=== PATIENT | male | born 1995 | race Caucasian/White ===

== ENCOUNTER 2024-11-02 19:40 | Emergency (ER) | payer OTHER, SELFPAY ==
[2024-11-02 19:45] VITALS: BP 130/96
--- NOTE | 2024-11-02 22:05 | ED.GENMED ---
History of Present Illness
<HEIDI Abarca - Last Filed: 11/02/24 23:15>
General
Chief Complaint: Headache
Source: patient and spouse
Exam Limitations: none
Time Seen by Provider: 11/02/24 22:04
Nursing documentation reviewed up to this point in time: agreed with
History of Present Illness
History of Present Illness:
Pt is a 29 y/o M w/ PMH of 'walking pneumonia' x 2days diagnosed by his FM provider without chest XR confirmation, who presents to the ED with headache and stiff neck x 7 hours. He states he has been taking azithromycin and Tessalon perles x 1 day
for the PNA and associated cough. He states the the headache is sharp and constant and is located at one point around the L anterior hairline. He also admits to associated stiff neck also x 7 hours that is mostly on the left side. He does state that
he has been lying down a lot because of fatigue and may have been 'laying weird' causing his neck to feel this way. Pt admits that he has tried Tylenol and Ibuprofen to alleviate the pain but it has not helped, with the last dose of ibuprofen at
20:30pm. He admits to associated fever since onset of PNA symptoms with a Tmax of 102.6F that has been managed with Tylenol. Pt denies sore throat, chest pain, palpitations, hemoptysis, abd pain, vomiting, diarrhea.
Past History
<HEIDI Abarca - Last Filed: 11/02/24 23:15>
Past History
ED Past Medical History: None; Negative Asthma, HTN, Hypercholesterolemia or NIDDM
ED Past Surgical History: Other (Cameron teeth, varicocele repair)
Social History
Tobacco: Non-smoker
Alcohol: Occasional
Drug: None
Personal: Single
Living: with family
Review of Systems
<HEIDI Abarca - Last Filed: 11/02/24 23:15>
Review of Systems
Allergies reviewed?: Yes
Other source history: family
Constitutional: Reports fever, fatigue, night sweats and chills
EENT: Denies sore throat
Respiratory: Reports cough; Denies hemoptysis or trouble breathing
Cardiac: Denies chest pain, palpitations or syncope
ABD/GI: Reports nausea; Denies abdominal pain, vomiting or diarrhea
: Reports no symptoms
Musculoskeletal: Reports neck pain (x7 hrs); Denies back pain
Neurological: Reports headache (x7 hrs); Denies dizzy
Phy Exam
<HEIDI Abarca - Last Filed: 11/02/24 23:15>
General Physical Exam
General Presentation: well appearing and no apparent distress
General age: appears stated age
General Skin: warm and dry
General Habitus: normal
General Mental: alert
General Hydration: appears well hydrated
Cardiovascular Exam
Cardiovascular Exam: regular rate/rhythm and no murmur
Pulmonary Exam
Pulmonary Exam: no respiratory distress
Gastrointestinal Exam
Gastrointestinal Exam: non tender, soft and non distended
Neurological Exam
Neurological Exam: alert, oriented x3, no motor deficits and other (Kernig and Brudzinski tests negative)
Musculoskeletal Exam
Musculoskeletal Exam: neck pain (Kernig and Brudzinski tests negative)
Course
<HEIDI Abarca - Last Filed: 11/02/24 23:15>
Orders/Labs/Results
Orders:
Orders
11/02/24 22:47
Chest [CR Chest - 2 Views ] Urgent
Comment:
Reason For Exam: cough, fever
11/02/24 22:56
CBC/With Diff [Complete Blood Count/With Diff] Urgent
CMP [Comprehensive Metabolic Panel] Urgent
COVID-19 Antigen Urgent
Source: Nasal Swab
Influenza A+B Rapid Molecular Urgent
SANTOS Source: Nasal Swab
Specimen Description:
11/02/24 23:31
CT Head & Neck Angio W/wo IV Urgent
Comment:
Reason For Exam: headache after coughing
11/03/24 01:19
Dexamethasone Sod Phosphate [Decadron] 10 mg IV NOW STA
Abnormal Lab Results
11/02/24
22:56
RBC 4.66 L 10^6/uL
(4.70-6.10)
Absolute Monos (auto) 1.3 H 10^3/uL
(0.1-0.6)
Monocytes % 18.6 H %
(1.7-9.3)
Glucose 108 H mg/dl
(70-99)
11/02/24 22:56
11/02/24 22:56
Vital Signs
Initial and Last Documented VS:
Initial Vital Signs
Temp Pulse Resp BP Pulse Ox
98.3 F 84 18 130/96 100
11/02/24 19:45 11/02/24 19:45 11/02/24 19:45 11/02/24 19:45 11/02/24 19:45
Last Documented Vital Signs
Temp Pulse Resp BP Pulse Ox
98.3 F 84 18 121/78 99
11/02/24 19:45 11/02/24 19:45 11/02/24 19:45 11/03/24 01:00 11/03/24 01:00
<Zev Molina, DO - Last Filed: 11/03/24 01:23>
Orders/Labs/Results
Orders:
Orders
11/02/24 22:47
Chest [CR Chest - 2 Views ] Urgent
Comment:
Reason For Exam: cough, fever
11/02/24 22:56
CBC/With Diff [Complete Blood Count/With Diff] Urgent
CMP [Comprehensive Metabolic Panel] Urgent
COVID-19 Antigen Urgent
Source: Nasal Swab
Influenza A+B Rapid Molecular Urgent
SANTOS Source: Nasal Swab
Specimen Description:
11/02/24 23:31
CT Head & Neck Angio W/wo IV Urgent
Comment:
Reason For Exam: headache after coughing
11/03/24 01:19
Dexamethasone Sod Phosphate [Decadron] 10 mg IV NOW STA
Abnormal Lab Results
11/02/24
22:56
RBC 4.66 L 10^6/uL
(4.70-6.10)
Absolute Monos (auto) 1.3 H 10^3/uL
(0.1-0.6)
Monocytes % 18.6 H %
(1.7-9.3)
Glucose 108 H mg/dl
(70-99)
11/02/24 22:56
11/02/24 22:56
Vital Signs
Initial and Last Documented VS:
Initial Vital Signs
Temp Pulse Resp BP Pulse Ox
98.3 F 84 18 130/96 100
11/02/24 19:45 11/02/24 19:45 11/02/24 19:45 11/02/24 19:45 11/02/24 19:45
Last Documented Vital Signs
Temp Pulse Resp BP Pulse Ox
98.3 F 84 18 121/78 99
11/02/24 19:45 11/02/24 19:45 11/02/24 19:45 11/03/24 01:00 11/03/24 01:00
<HEIDI Abarca - Last Filed: 11/02/24 23:15>
MDM/Problems Addressed
Differential Diagnosis Includes:
myalgia/ROBINS due to PNA, myalgia/ROBINS due to influenza, myalgia/ROBINS due to COVID-19, meningitis, encephalitis, migraine, sepsis
<HEIDI Abarca - Last Filed: 11/02/24 23:15>
*Critical Care Note
Total Time (30-74mins, 75-104mins- exclusive of procedures): Not Applicable
<Zev Molina DO - Last Filed: 11/03/24 01:23>
Update Note
Update Note:
CT HEAD
CTA NECK
CTA COW
Comparison: None.
IMPRESSION:
CT HEAD
No acute intracranial hemorrhage, mass effect, or midline shift.
Tejeda-white differentiation is intact.
CTA NECK
No high grade stenosis, occlusion, or dissection of the bilateral common carotid, bilateral internal carotid, or bilateral vertebral arteries.
Small amount of nodularity within the right upper lobe patient's known pneumonia.
ED Attending Note
<HEIDI Abarca - Last Filed: 11/02/24 23:15>
-
Portions of this chart may have been created with voice recognition software.� Occasional wrong word or��sound alike� substitutions may have occurred due to the inherent limitations of voice recognition software.
<Zev Molina DO - Last Filed: 11/03/24 01:23>
ED Attending Note
Patient seen and examined by attending physician: Yes
I performed the substantive portion of visit, reviewed & personally made and approve the management plan that is documented in note by myself or MAHAMED.: Yes
ED Attending Note:
Pleasant 29-year-old male presents emerged department after 2 days of 'walking pneumonia'. He presents with stiff neck for the last few hours. He states that his muscles are sore but he denies any neck rigidity. He has stated that he has full
range of motion of his neck. He has been taking azithromycin and Tessalon Perles for the last day. He does report that the headache is sharp and localized to the left front head near his buddhism. Patient states that his stiff neck is limited to
his left side. He states that it is a mouth severe in nature. Patient was seen in conjunction with the PA student. I have reviewed and agree with the history and treatment plan presented. On my independent physical exam, patient is awake, alert,
and oriented x3, minimal acute distress. Heart is regular rate and rhythm. Lungs clear to auscultation bilaterally with occasional generalized wheezing present no accessory muscle usage.. abdomen is soft nontender. Patient mentating
appropriately. No nuchal rigidity noted.
Discussed CT scan with the patient. At this point he states that his headache has mostly resolved treatment. We did discuss lumbar puncture and at this point patient refused. Discussed return to ER instructions with patient and and they both
are in agreement. They verbalized good understanding of discharge instructions and will be discharged from the ER in improved condition. He will continue to take
Discharge Plan
Departure
Patient Disposition: Home (Routine Discharge)
Date of Disposition: 11/03/24
Time of Disposition: :22
Patient with high blood pressure during this ER visit?: Yes
Discharge Problem:
Headache, Pneumonia
Instructions: BLOOD PRESSURE, Headache, Adult (DC), Pneumonia
Prescriptions:
No Action
pantoprazole 40 MG tablet,delayed release (DR/EC)
40 mg PO DAILY Qty: 10 0RF
sucralfate 1 GRAM tablet
1 g PO ACHS Qty: 40 0RF
Referrals:
Joni Greenwood DO [Family Provider] -
Activity Restrictions/Additional Instructions:
Please continue to take your antibiotic for your pneumonia as previously directed
It was a pleasure meeting you and taking part in your care. We hope for your continued healing and wellness.
Please read discharge instructions in their entirety. However, they are for general education and may not describe your exact diagnosis at discharge. Information on your ER visit and medical conditions were discussed with you along with appropriate
follow up information...
If indicated, please take your medications as instructed and indicated on discharge paperwork.
Please schedule a follow up appointment as directed. Call to schedule an appointment
Please return to the emergency department with ANY change in, persisting, or worsening of symptoms. If any of your symptoms do not improve, or persist, or become more severe within 6-12 hours, please return to the emergency department for further
care.
Please return to the emergency department if you develop a headache, neck pain/stiffness, fever greater than 100.4F, chest pain, shortness of breath, persistent nausea, vomiting, slurred speech, difficulty walking, numbness/tingling, weakness, signs
of infection or any other symptoms that are worrisome to you.
If you have any questions or concerns please do not hesitate to call the Hospital at or E-mail me directly at [email or web address]
Interventions
Interventions:
*Risk Screen - Suicide Last Done: 11/02/24 19:48
*General Assessment Last Done: 11/02/24 19:48
*Neglect/Abuse Screening Last Done: 11/02/24 19:48
ED- Fall Risk Assessment Last Done: 11/02/24 22:14
*ED COVID-19 Vaccine History Last Done: 11/02/24 22:14
ED- Neurological Assessment Last Done: 11/02/24 22:14
Discharge Date and Time
Print Language: GAMBIAN
[2024-11-02 22:10] VITALS: BP 128/76
[2024-11-02 22:11] VITALS: BMI 27.5
[2024-11-02 23:13] LABS: % Basophils 0.6 % (0-2); % Eosinophils 1.3 % (0-6); % Immature Granulocytes 0.3 % (0-0.5); % Lymphocytes 27.4 % (20.5-51.1); % Monocytes 18.6 % (1.7-9.3); % Neutrophils 51.8 % (42.2-75.2); Absolute Eosinophils 0.1 10^3/uL (0-0.7); Absolute Lymphocytes 1.8 10^3/uL (1.2-3.4); Absolute Monocytes 1.3 10^3/uL (0.1-0.6); Absolute Neutrophils 3.5 10^3/uL (1.4-6.5); Hematocrit 40.3 % (39.0-52.0); Hemoglobin 13.5 g/dL (13.0-18.0); Mean Corp Hgb Conc. 33.5 g/dL (33.0-37.0); Mean Corpuscular Volume 86.5 fL (80.0-94.0); Mean Platelet Volume 9.3 fL (7.4-10.4); Nucleated Red Blood Cells % 0 % (-); Platelet Count 208 10^3/uL (130-400); Red Blood Cell Count 4.66 10^6/uL (4.70-6.10); Red Cell Dist. Width 12.5 % (11.5-14.5); White Blood Cell Count 6.7 10^3/uL (4.8-10.8)
[2024-11-02 23:27] LABS: ALT (SGPT) 21 U/L (0-50); AST (SGOT) 22 U/L (17-59); Albumin 4.3 g/dl (3.5-5.0); Alkaline Phosphatase 52 U/L (38-126); Blood Urea Nitrogen 11 mg/dl (9-20); Calcium 9.1 mg/dl (8.4-10.2); Carbon Dioxide 28 mmol/L (22-30); Chloride 101 mmol/L (98-107); Estimated Creatinine Clearance > 125 ml/min; Glucose 108 mg/dl (70-99); Potassium 4.1 mmol/L (3.5-5.1); Sodium 139 mmol/L (135-145); Total Bilirubin 0.4 mg/dl (0.2-1.3); Total Protein 6.9 g/dl (6.3-8.2); eGFR > 60.00
[2024-11-02 23:38] LABS: COVID-19 Antigen Negative (Negative)
[2024-11-03 01:00] VITALS: BP 121/78
[2024-11-03] MEDS: DECADRON 10 MG IV (01:38)
== END 2024-11-03 01:48 | disposition home or self-care (01) ==
LOC: EMR 19:40
PROVIDERS: EMERGENCY PHYSICIAN Student in an Organized Health Care Education/Training Program; FAMILY PHYSICIAN Family Medicine
DX: R51.9 Headache, unspecified (principal); J18.9 Pneumonia, unspecified organism; Z79.2 Long term (current) use of antibiotics
CPT/HCPCS: 99284; 96374; 70496; 70498; 71046; 80053; 85025; 87502; 87811; Q9967

== ENCOUNTER → 2024-11-16 15:46 | Outpatient (REF) | payer OTHER, SELFPAY | LOC: HWRAD 15:46 | PROVIDERS: ATTENDING PHYSICIAN Physician Assistant Medical | DX: J18.9 Pneumonia, unspecified organism (principal) | CPT/HCPCS: 71046 ==